=== PATIENT | male | born 1970 | race Two or more races ===

== ENCOUNTER 2020-01-14 15:55 | Emergency (ER) | payer BC, MEDICAID ==
[~2020-01-14] VITALS: Ht 170.2 cm; Wt 75.0 kg
[2020-01-14] MEDS ORDERED: ONDANSETRON HCL 4MG/2ML INJ IV STA ×2 (16:31→17:46)
[2020-01-14] MEDS ORDERED: MORPHINE SULFATE 4 MG/ML CPJ (NOT FOR IM USE) IV STA ×2 (16:31→17:46)
[2020-01-14] MEDS ORDERED: FLUORESCEIN SODIUM 1MG/STRIP LEFTEYE ONE (16:45)
[2020-01-14] MEDS ORDERED: TETANUS, DIPHTHERIA, PERTUSSIS VAC/PF 0.5ML (>7YR OLD) IM ONE (16:45)
[2020-01-14] MEDS ORDERED: TETRACAINE 0.5% OPHTH DROPS 4ML LEFTEYE ONE (16:45)
[2020-01-14] MEDS ORDERED: BACITRACIN ZINC OINT UDPKT TOP ONE (17:30)
[2020-01-14] MEDS ORDERED: LIDOCAINE HCL/PF 1% 10 MG/ML 5ML VIAL IJ ONE (17:30)
[2020-01-15 01:34] VITALS: BP 119/71
== END 2020-01-15 02:10 | disposition short-term general hospital (02) ==
LOC: ER 15:55
DX: S02.2XXA Fracture of nasal bones, initial encounter for closed fracture (principal); W18.39XA Other fall on same level, initial encounter; Y93.89 Activity, other specified; Y92.89 Other specified places as the place of occurrence of the external cause; Y99.8 Other external cause status
CPT/HCPCS: 12011; 70450; 70486; 90471; 90715; 96374; 96375; 96376; 99285; J2270; J2405; J3490